=== PATIENT | male | born 1985 | race Caucasian/White ===

== ENCOUNTER 2024-03-14 14:59 | Emergency (ER) | payer BC ==
[2024-03-14] MEDS: HYDROmorphone 1 MG/ML 1 ML SYRINGE IVP STA ×2 (15:12→16:17)
[2024-03-14] MEDS: SODIUM CHLORIDE 0.9% 1,000 ML IV STA (15:12)
--- NOTE | 2024-03-14 15:15 | ED ---
General Adult HPI - General Stated complaint: chainsaw accident Time Seen by Provider: 03/14/24 15:03 Source: patient, EMS Mode of arrival: EMS Limitations: no limitations - History of Present Illness Initial comments: Dictation was produced using [employer] dictation software. please excuse any grammatical, word or spelling errors. Chief Complaint: 38-year-old male with chainsaw injury to the right upper extremity History of Present Illness: Patient is a 38-year-old male approximately 1 hour prior to arrival he had suffered a chainsaw injury to his right thenar eminence. 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 He states that he was cutting a tree when the chainsaw kicked back and hit him in the right hand. Apparently there was some active bleeding and tourniquet was placed by prehospital providers. Patient states that he passed out after the injury. Last oral intake was 12:00. Patient's last tetanus was in 2011. Complains of some numbness and tingling to the distal extremity since the tourniquet was placed. Patient complaining of pain. Denies any significant comorbidities. No complaints of other injuries. The ROS documented in this emergency department record has been reviewed and confirmed by me. Those systems with pertinent positive or negative responses have been documented in the HPI. All other systems are other negative and/or noncontributory. - Related Data Home Medications Medication Instructions Recorded Confirmed DULoxetine HCL [Cymbalta] 30 mg PO DAILY@1200 03/14/24 03/14/24 DULoxetine HCL [Cymbalta] 60 mg PO DAILY@1200 03/14/24 03/14/24 Diclofenac Sodium [Voltaren] 75 mg PO BID 03/14/24 03/14/24 lisinopriL [Prinivil] 20 mg PO DAILY@1200 03/14/24 03/14/24 methocarbamoL [Robaxin-750] 750 mg PO DAILY@1200 03/14/24 03/14/24 traZODone HCL 150 mg PO HS PRN 03/14/24 03/14/24 Previous Rx's Medication Instructions Recorded HYDROcodone/APAP 5-325MG [[place] 1 tab PO Q6HR PRN 3 Days #12 tab 03/14/24 5-325] Sulfamethox-Tmp 800-160Mg [Bactrim 1 tab PO Q12HR 7 Days #14 tab 03/14/24 DS 800-160 mg] Allergies Allergy/AdvReac Type Severity Reaction Status Date / Time No Known Allergies Allergy Verified 03/14/24 16:40 Review of Systems ROS Statement: Those systems with pertinent positive or pertinent negative responses have been documented in the HPI. ROS Other: All systems not noted in ROS Statement are negative. Past Medical History Past Medical History: Hypertension History of Any Multi-Drug Resistant Organisms: None Reported Past Surgical History: No Surgical Hx Reported Past Psychological History: Depression, PTSD Smoking Status: Vaper Past Alcohol Use History: Daily Past Drug Use History: Marijuana General Exam - General Exam Comments Initial Comments: PHYSICAL EXAM: General Impression: Alert and oriented x3, acute distress secondary to pain HEENT: Normocephalic atraumatic, extra-ocular movements intact, pupils equal and reactive to light bilaterally, mucous membranes moist. Cardiovascular: Heart regular rate and rhythm Chest: Able to complete full sentences, no retractions, no tachypnea Abdomen: abdomen soft, non-tender, non-distended, no organomegaly Musculoskeletal: Pulses present and equal in all extremities, no peripheral edema Motor: no focal deficits noted Neurological: CN II-XII grossly intact, no focal motor or sensory deficits noted Skin: Intact with no visualized rashes Psych: Normal affect and mood Right upper extremity: Finger chainsaw injury to the thenar eminence ring approximately 4 cm with exposed muscle tissue. Tourniquet was taken down and no active pulsatile bleeding. Limitations: no limitations Course Vital Signs 03/14/24 15:03 Temperature 97.7 F Pulse Rate 75 Respiratory 20 Rate Blood Pressure 163/113 O2 Sat by Pulse 96 Oximetry - Reevaluation(s) Reevaluation #1: 03/14/24 15:15 patient activated level 2 trauma due to tourniquet application prior to hospital arrival. Case discussed with on-call trauma surgery, Dr. Tillman who is aware of patient's arrival and clinical condition. Reevaluation #2: 03/14/24 16:42 CT angiography was performed. CT radiology read shows no concern for arterial injury. There does appear to be chip fracture of the distal first phalanx. Concern for open fracture. Case was discussed with Dr. Estrella who will come and evaluate the patient and repair injury at the bedside. Reevaluation #3: 03/14/24 18:18 Patient was seen and evaluated by Dr. Estrella at the bedside. He did perform suture repair. Recommends patient be discharged with 1 week course of Bactrim. Patient has follow-up with Ortho. EKG Findings - EKG Comments: EKG Findings:: My EKG interpretation: Ventricular rate 71, sinus rhythm,. 149, QRS 108, QTc 406. No TX prolongation, no QTC prolongation, no ST or T-wave changes noted. Overall, this EKG is unremarkable Medical Decision Making - Medical Decision Making Was pt. sent in by a medical professional or institution (, PA, OPERATION AGENT, urgent care, hospital, or skilled nursing...) When possible be specific @ -No Did you speak to anyone other than the patient for history (EMS, parent, family, police, friend...)? What history was obtained from this source @ -No Did you review nursing and triage notes (agree or disagree)? Why? @ -I reviewed and agree with nursing and triage notes Were old charts reviewed (outside hosp., previous admission, EMS record, old EKG, old radiological studies, urgent care reports/EKG's, skilled nursing records)? Report findings @ -No old charts were reviewed Differential Diagnosis (chest pain, altered mental status, abdominal pain women, abdominal pain men, vaginal bleeding, musculoskeletal, weakness, fever, dyspnea, syncope, headache, dizziness, GI bleed, back pain, seizure, CVA, palpatations, mental health)? @ -Arterial injury, tendon laceration, fracture EKG interpreted by me (3pts min.). @ -None done X-rays interpreted by me (1pt min.). @ -Chest x-ray pelvis x-ray shows no acute processes CT interpreted by me (1pt min.). @ -CT angiography of the upper extremity shows no arterial injury U/S interpreted by me (1pt. min.). @ -None done What testing was considered but not performed or refused? (CT, X-rays, U/S, labs)? Why? @ -None What meds were considered but not given or refused? Why? @ -None Was smoking cessation discussed for >3mins.? @ -No Were there social determinants of health that impacted care today? How? (Homelessness, low income, unemployed, alcoholism, drug addiction, transportation, low edu. Level, literacy, decrease access to med. care, snf, rehab)? @ -No Was there de-escalation of care discussed even if they declined (Discuss DNR or withdrawal of care, Hospice)? DNR status @ -No What co-morbidities impacted this encounter? (DM, HTN, Smoking, COPD, CAD, Cancer, CVA, ARF, Chemo, Hep., AIDS, mental health diagnosis, sleep apnea, morbid obesity)? @ -None Was patient admitted / discharged? Hospital course, mention meds given and route, prescriptions, significant lab abnormalities, going to OR and other pertinent info. @ -38-year-old male presents to the emergency department with chainsaw injury to the right palm. Vital signs upon arrival are within acceptable limits. Patient had tourniquet placed by prehospital providers. Tourniquet was taken down there was no pulsatile bleeding however given proximity to the radial artery CT angiography of the right upper extremity was performed. Patient was seen and evaluated at bedside by Dr. Tillman who agrees that there is no arterial injury. Case was discussed with Dr. Estrella who reviewed the images. He did come down and evaluate the patient performed suture repair. Recommended discharge with 7 days of Bactrim. Did you discuss the management of the patient with other professionals (professionals i.e. , PA, OPERATION AGENT, lab, RT, psych nurse, medical social consultant, chain saw operator, teacher, foreign policy officer, case preparer and liner)? Give summary @ -See above Was critical care preformed (if so, how long)? @ -Yes, 33 minutes for activated level 2 trauma Undiagnosed new problem with uncertain prognosis? @ -No Drug Therapy requiring intensive monitoring for toxicity (Heparin, Nitro, Insulin, Cardizem)? @ -No Were any procedures done? @ -No Diagnosis/symptom? Acute, or Chronic, or Acute on Chronic? Uncomplicated (without systemic symptoms) or Complicated (systemic symptoms)? @ -Chainsaw injury to the right hand Side effects of treatment? @ -No Exacerbation, Progression, or Severe Exacerbation? @ -No Poses a threat to life or bodily function? How? (Chest pain, [place], [place], pneumonia, PE, COPD, DKA, ARF, appy, cholecystitis, CVA, Diverticulitis, Homicidal, Suicidal, threat to staff... and all critical care pts) @ -yes - Lab Data Result diagrams: 03/14/24 15:00 10/17/24 15:00 Lab Results 03/14/24 03/14/24 03/14/24 Range/Units 15:00 15:00 15:00 WBC 11.3 H (3.8-10.6) k/uL RBC 5.35 (4.30-5.90) m/uL Hgb 15.9 (13.0-17.5) gm/dL Hct 50.7 (39.0-53.0) % MCV 94.8 (80.0-100.0) fL MCH 29.7 (25.0-35.0) pg MCHC 31.3 (31.0-37.0) g/dL RDW 12.8 (11.5-15.5) % Plt Count 253 (150-450) k/uL MPV 8.1 Neutrophils % 69 % Lymphocytes % 21 % Monocytes % 6 % Eosinophils % 1 % Basophils % 1 % Neutrophils # 7.8 H (1.3-7.7) k/uL Lymphocytes # 2.4 (1.0-4.8) k/uL Monocytes # 0.6 (0-1.0) k/uL Eosinophils # 0.1 (0-0.7) k/uL Basophils # 0.1 (0-0.2) k/uL PT 10.5 (10.0-12.5) sec INR 1.0 (<1.2) APTT 19.2 L (22.0-30.0) sec Sodium 140 (137-145) mmol/L Potassium 4.4 (3.5-5.1) mmol/L Chloride 106 (98-107) mmol/L Carbon Dioxide 23 (22-30) mmol/L Anion Gap 11 mmol/L BUN 17 (9-20) mg/dL Creatinine 1.08 (0.66-1.25) mg/dL Est GFR (CKD-EPI)AfAm >90 (>60 ml/min/1.73 sqM) Est GFR (CKD-EPI)NonAf 86 (>60 ml/min/1.73 sqM) Glucose 102 H (74-99) mg/dL Lactic Ac Sepsis Rflx Plasma Lactic Acid Coleman (0.7-2.0) mmol/L Calcium 10.7 H (8.4-10.2) mg/dL Total Bilirubin 0.9 (0.2-1.3) mg/dL AST 35 (17-59) U/L ALT 57 H (4-49) U/L Alkaline Phosphatase 74 (38-126) U/L Troponin I (0.000-0.034) ng/mL Total Protein 8.2 (6.3-8.2) g/dL Albumin 5.1 H (3.5-5.0) g/dL Serum Alcohol <10 mg/dL Blood Type Blood Type Confirm Blood Type Recheck Bld Type Recheck Status Antibody Screen Spec Expiration Date 03/14/24 03/14/24 03/14/24 Range/Units 15:00 15:00 15:05 WBC (3.8-10.6) k/uL RBC (4.30-5.90) m/uL Hgb (13.0-17.5) gm/dL Hct (39.0-53.0) % MCV (80.0-100.0) fL MCH (25.0-35.0) pg MCHC (31.0-37.0) g/dL RDW (11.5-15.5) % Plt Count (150-450) k/uL MPV Neutrophils % % Lymphocytes % % Monocytes % % Eosinophils % % Basophils % % Neutrophils # (1.3-7.7) k/uL Lymphocytes # (1.0-4.8) k/uL Monocytes # (0-1.0) k/uL Eosinophils # (0-0.7) k/uL Basophils # (0-0.2) k/uL PT (10.0-12.5) sec INR (<1.2) APTT (22.0-30.0) sec Sodium (137-145) mmol/L Potassium (3.5-5.1) mmol/L Chloride (98-107) mmol/L Carbon Dioxide (22-30) mmol/L Anion Gap mmol/L BUN (9-20) mg/dL Creatinine (0.66-1.25) mg/dL Est GFR (CKD-EPI)AfAm (>60 ml/min/1.73 sqM) Est GFR (CKD-EPI)NonAf (>60 ml/min/1.73 sqM) Glucose (74-99) mg/dL Lactic Ac Sepsis Rflx Plasma Lactic Acid Coleman (0.7-2.0) mmol/L Calcium (8.4-10.2) mg/dL Total Bilirubin (0.2-1.3) mg/dL AST (17-59) U/L ALT (4-49) U/L Alkaline Phosphatase (38-126) U/L Troponin I <0.012 (0.000-0.034) ng/mL Total Protein (6.3-8.2) g/dL Albumin (3.5-5.0) g/dL Serum Alcohol mg/dL Blood Type A Positive Blood Type Confirm A Positive Blood Type Recheck No Previous Record Bld Type Recheck Status CABO Indicated Antibody Screen NEGATIVE Spec Expiration Date 03/17/2024 - 229903/14/24 03/14/24 Range/Units 15:19 16:11 WBC (3.8-10.6) k/uL RBC (4.30-5.90) m/uL Hgb (13.0-17.5) gm/dL Hct (39.0-53.0) % MCV (80.0-100.0) fL MCH (25.0-35.0) pg MCHC (31.0-37.0) g/dL RDW (11.5-15.5) % Plt Count (150-450) k/uL MPV Neutrophils % % Lymphocytes % % Monocytes % % Eosinophils % % Basophils % % Neutrophils # (1.3-7.7) k/uL Lymphocytes # (1.0-4.8) k/uL Monocytes # (0-1.0) k/uL Eosinophils # (0-0.7) k/uL Basophils # (0-0.2) k/uL PT (10.0-12.5) sec INR (<1.2) APTT (22.0-30.0) sec Sodium (137-145) mmol/L Potassium (3.5-5.1) mmol/L Chloride (98-107) mmol/L Carbon Dioxide (22-30) mmol/L Anion Gap mmol/L BUN (9-20) mg/dL Creatinine (0.66-1.25) mg/dL Est GFR (CKD-EPI)AfAm (>60 ml/min/1.73 sqM) Est GFR (CKD-EPI)NonAf (>60 ml/min/1.73 sqM) Glucose (74-99) mg/dL Lactic Ac Sepsis Rflx Y Plasma Lactic Acid Coleman 2.1 H* (0.7-2.0) mmol/L Calcium (8.4-10.2) mg/dL Total Bilirubin (0.2-1.3) mg/dL AST (17-59) U/L ALT (4-49) U/L Alkaline Phosphatase (38-126) U/L Troponin I (0.000-0.034) ng/mL Total Protein (6.3-8.2) g/dL Albumin (3.5-5.0) g/dL Serum Alcohol mg/dL Blood Type Blood Type Confirm Blood Type Recheck Bld Type Recheck Status Antibody Screen Spec Expiration Date Disposition Clinical Impression: Hand laceration Disposition: HOME SELF-CARE Condition: Fair Instructions (If sedation given, give patient instructions): Laceration (ED) Prescriptions: Sulfamethox-Tmp 800-160Mg [Bactrim DS 800-160 mg] 1 tab PO Q12HR 7 Days #14 tab HYDROcodone/APAP 5-325MG [[place] 5-325] 1 tab PO Q6HR PRN 3 Days #12 tab PRN Reason: Severe Pain Is patient prescribed a controlled substance at d/c from ED?: Yes Referrals: Denton Estrella MD [STAFF PHYSICIAN] - 1-2 days Time of Disposition: 18:22
[2024-03-14 15:17] VITALS: TEMP 97.7
[2024-03-14 15:22] LABS: Basophils # (A) 0.1 k/uL (0-0.2); Basophils % (A) 1 %; Eosinophils # (A) 0.1 k/uL (0-0.7); Eosinophils % (A) 1 %; HCT 50.7 % (39.0-53.0); HGB 15.9 gm/dL (13.0-17.5); Lymphocytes # (A) 2.4 k/uL (1.0-4.8); Lymphocytes % (A) 21 %; MCH 29.7 pg (25.0-35.0); MCHC 31.3 g/dL (31.0-37.0); MCV 94.8 fL (80.0-100.0); Mean Platelet Volume 8.1; Monocytes # (A) 0.6 k/uL (0-1.0); Monocytes % (A) 6 %; Neutrophils # (A) 7.8 k/uL (1.3-7.7); Neutrophils % (A) 69 %; Platelet Count 253 k/uL (150-450); RBC 5.35 m/uL (4.30-5.90); RDW 12.8 % (11.5-15.5); WBC 11.3 k/uL (3.8-10.6)
--- NOTE | 2024-03-14 15:29 | XR ---
EXAMINATION TYPE: XR chest 1V portable DATE OF EXAM: 03/14/2024 3:25 PM CLINICAL INDICATION: Male, 38 years old with history of trauma; H COMPARISON: None TECHNIQUE: XR chest 1V portable Frontal view of the chest. FINDINGS: Lungs/Pleura: There is no evidence of pleural effusion, focal consolidation, or pneumothorax. Pulmonary vascularity: Unremarkable. Heart/mediastinum: Cardiomediastinal silhouette is unremarkable. Musculoskeletal: No acute osseous pathology. IMPRESSION: No acute cardiopulmonary disease/process. [facility], , 03/14/2024 3:27 PM
[2024-03-14 15:30] LABS: Prothrombin Time 10.5 sec (10.0-12.5)
[2024-03-14] MEDS: DIPH,PERTUS(ACELL)TETVAC-LF 0.5 ML VIAL IM ONE (15:30)
--- NOTE | 2024-03-14 15:31 | XR ---
EXAMINATION TYPE: XR pelvis AP view DATE OF EXAM: 03/14/2024 3:25 PM CLINICAL INDICATION: Male, 38 years old with history of Trauma; [facility] COMPARISON: 07/23/2010 TECHNIQUE: XR pelvis AP view, examined in a single projection. FINDINGS: There is no evidence of fracture or dislocation. There is no soft tissue abnormality. No a bnormal calcifications are present. The spine appears intact. The hips appear intact. No significant degeneration. IMPRESSION: No acute osseous pathology. [facility], , 03/14/2024 3:28 PM
[2024-03-14 15:42] LABS: ALT 57 U/L (4-49); AST 35 U/L (17-59); African American GFR (CKD) >90 (>60 ml/min/1.73 sqM); Albumin 5.1 g/dL (3.5-5.0); Alcohol <10 mg/dL; Alkaline Phosphatase 74 U/L (38-126); Anion Gap 11 mmol/L; Blood Urea Nitrogen 17 mg/dL (9-20); Calcium 10.7 mg/dL (8.4-10.2); Carbon Dioxide 23 mmol/L (22-30); Chloride 106 mmol/L (98-107); Glucose 102 mg/dL (74-99); Non-African American GFR(CKD) 86 (>60 ml/min/1.73 sqM); Potassium 4.4 mmol/L (3.5-5.1); Sodium 140 mmol/L (137-145); Total Bilirubin 0.9 mg/dL (0.2-1.3); Total Protein 8.2 g/dL (6.3-8.2)
[2024-03-14 16:03] LABS: Partial Thromboplastin Time 19.2 sec (22.0-30.0)
--- NOTE | 2024-03-14 16:14 | P.GSHP ---
History of Present Illness H&P Date: 03/14/24 History of Present Illness: Patient is a 38-year-old male approximately 1 hour prior to arrival he had suffered a chainsaw injury to his right thenar eminence. Level 2 trauma called. 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 He states that he was cutting a tree when the chainsaw kicked back and hit him in the right hand. Apparently there was some active bleeding and tourniquet was placed by EMS. Patient states that he passed out after the injury. Patient's last tetanus was in 2011. Complains of some numbness and tingling to the distal extremity since the tourniquet was placed. Patient complaining of pain. Denies any significant comorbidities. No complaints of other injuries. Right Upper Extremity was evaluated by myself in the ER with the Torniquet taken down and there was no pu lsatile bleeding appreciated. Review of Systems ROS Statement: Those systems with pertinent positive or pertinent negative responses have been documented in the HPI. ROS Other: All systems not noted in ROS Statement are negative. Past Medical History Past Medical History: Hypertension History of Any Multi-Drug Resistant Organisms: None Reported Past Surgical History: No Surgical Hx Reported Past Psychological History: Depression, PTSD Smoking Status: Vaper Past Alcohol Use History: Daily Past Drug Use History: Marijuana General Exam - General Exam Comments Initial Comments: PHYSICAL EXAM: General Impression: Alert and oriented x3, acute distress secondary to pain HEENT: Normocephalic atraumatic, extra-ocular movements intact, pupils equal and reactive to light bilaterally, mucous membranes moist. Cardiovascular: Heart regular rate and rhythm Chest: Able to complete full sentences, no retractions, no tachypnea Abdomen: abdomen soft, non-tender, non-distended, no organomegaly Musculoskeletal: Pulses present and equal in all extremities, no peripheral edema Motor: no focal deficits noted Neurological: CN II-XII grossly intact, no focal motor or sensory deficits noted Skin: Intact with no visualized rashes Psych: Normal affect and mood Right upper extremity: Finger chainsaw injury to the thenar eminence ring approximately 4 cm with exposed muscle tissue. Tourniquet was taken down and no active pulsatile bleeding. 38 year old male Level 2 Trauma with Chainsaw Injury to Right Hand -CTA RUE pending -Labs Pending -Patient will need evaluation by hand surgery for possible tendon injury Simon Tillman DO [facility] [phone] Past Medical History Past Medical History: Hypertension History of Any Multi-Drug Resistant Organisms: None Reported Past Surgical History: No Surgical Hx Reported Past Psychological History: Depression, PTSD Smoking Status: Vaper Past Alcohol Use History: Daily Past Drug Use History: Marijuana Medications and Allergies Allergies Allergy/AdvReac Type Severity Reaction Status Date / Time No Known Allergies Allergy Verified 03/14/24 15:12 Surgical - Exam Vital Signs Temp Pulse Resp BP Pulse Ox 97.7 F 75 20 163/113 96 03/14/24 15:03 03/14/24 15:03 03/14/24 15:03 03/14/24 15:03 03/14/24 15:03 Results - Labs 03/14/24 15:00 03/14/24 15:00 Abnormal Lab Results - Last 24 Hours (Table) 03/14/24 03/14/24 03/14/24 Range/Units 15:00 15:00 15:00 WBC 11.3 H (3.8-10.6) k/uL Neutrophils # 7.8 H (1.3-7.7) k/uL APTT 19.2 L (22.0-30.0) sec Glucose 102 H (74-99) mg/dL Calcium 10.7 H (8.4-10.2) mg/dL ALT 57 H (4-49) U/L Albumin 5.1 H (3.5-5.0) g/dL Diabetes panel 03/14/24 Range/Units 15:00 Sodium 140 (137-145) mmol/L Potassium 4.4 (3.5-5.1) mmol/L Chloride 106 (98-107) mmol/L Carbon Dioxide 23 (22-30) mmol/L BUN 17 (9-20) mg/dL Creatinine 1.08 (0.66-1.25) mg/dL Glucose 102 H (74-99) mg/dL Calcium 10.7 H (8.4-10.2) mg/dL AST 35 (17-59) U/L ALT 57 H (4-49) U/L Alkaline Phosphatase 74 (38-126) U/L Total Protein 8.2 (6.3-8.2) g/dL Albumin 5.1 H (3.5-5.0) g/dL Calcium panel 03/14/24 Range/Units 15:00 Calcium 10.7 H (8.4-10.2) mg/dL Albumin 5.1 H (3.5-5.0) g/dL Pituitary panel 03/14/24 Range/Units 15:00 Sodium 140 (137-145) mmol/L Potassium 4.4 (3.5-5.1) mmol/L Chloride 106 (98-107) mmol/L Carbon Dioxide 23 (22-30) mmol/L BUN 17 (9-20) mg/dL Creatinine 1.08 (0.66-1.25) mg/dL Glucose 102 H (74-99) mg/dL Calcium 10.7 H (8.4-10.2) mg/dL Adrenal panel 03/14/24 Range/Units 15:00 Sodium 140 (137-145) mmol/L Potassium 4.4 (3.5-5.1) mmol/L Chloride 106 (98-107) mmol/L Carbon Dioxide 23 (22-30) mmol/L BUN 17 (9-20) mg/dL Creatinine 1.08 (0.66-1.25) mg/dL Glucose 102 H (74-99) mg/dL Calcium 10.7 H (8.4-10.2) mg/dL Total Bilirubin 0.9 (0.2-1.3) mg/dL AST 35 (17-59) U/L ALT 57 H (4-49) U/L Alkaline Phosphatase 74 (38-126) U/L Total Protein 8.2 (6.3-8.2) g/dL Albumin 5.1 H (3.5-5.0) g/dL
--- NOTE | 2024-03-14 16:18 | CT ---
EXAMINATION TYPE: CT angio upper extremity RT DATE OF EXAM: 03/14/2024 COMPARISON: None HISTORY: chainsaw to the hand. pt unable to bring arms up due to poor shoulders and pain CT DLP: 1427.7 mGycm Automated exposure control for dose reduction was used. Contrast: None Technique: Axial images right upper extremity at 2 mm thick sections. FINDINGS: Soft tissue injury is at the anterior right wrist. This may be deeper along the radial aspect of the right hand. Lateral flexor tendons appear intact. The more medial tendons are poorly visualized. Joint spaces are preserved. Small osseous injury to the base of the thumb phalanx may be present. Example image series 403 image 36, series 402 image 7. Study is performed with intravenous contrast. The brachial artery and the radial and ulnar arteries a t their origins are identified. The distal arterial vessels are poorly visualized. A small portion of the radial artery appears to be visualized at the distal radius. This appears to be just deep to the soft tissue injury. Some lucency identified on the coronal plane images within the distal diaphyseal radius and ulna appe ar to be artifact, possibly motion artifact and not evident on the additional images. Remaining portions of the chest within the field of view appear normal. No suspicious infiltrates. No pneumothorax. Aorta and pulmonary vasculature is normal. Portions of the upper abdomen within the field of view appear unremarkable. No suspicious intra-abdom inal process. No organ lacerations evident. No superficial gastric or abdomen lacerations identified. IMPRESSION: 1. SMALL CHIP LIKE FRACTURE AT THE BASE OF THE PROXIMAL PHALANX OF RIGHT THUMB. 2. SOFT TISSUE INJURY ANTERIOR RIGHT WRIST. THIS APPEARS TO BE DEEPER ALONG THE RADIAL PORTION. A SMA LL PORTION OF THE RADIAL ARTERY APPEARS TO BE VISUALIZED AT THE LEVEL OF THE DISTAL RADIUS. [facility], Workstation: [id number], 03/14/2024 4:15 PM
[2024-03-14] MEDS: LIDOCAINE 1% INJ 10MG/ML (20 ML MDV) SQ ONE ×2 (17:08→17:50)
[2024-03-14] MEDS: MIDAZOLAM 2 MG/2 ML VIAL IV ONE (17:40)
[2024-03-14] MEDS: ACET/COD 300 MG/30 MG STARTER PACK 6 TAB BTL PO STA (18:47)
[2024-03-14] MEDS: SULFAMETH-TMP DS STARTER PACK 2 TAB BTL PO STA (18:47)
--- NOTE | 2024-03-14 18:52 | XR ---
EXAMINATION TYPE: XR finger RT, XR hand complete RT DATE OF EXAM: 03/14/2024 6:38 PM CLINICAL INDICATION: Male, 38 years old with history of chainsaw injury, thumb fracture; [facility] COMPARISON: None TECHNIQUE: XR finger RT, XR hand complete RT Frontal, lateral and oblique views were obtained. FINDINGS/IMPRESSION: Bandage limits evaluation. Osseous fragment near the first digit metatarsophalangeal joint could repr esent an sesamoid. Consider repeat exam with out bandage fixation plates no obvious radiopaque foreig n body. . [facility], , 03/14/2024 6:49 PM
--- NOTE | 2024-03-14 18:54 | P.CNOR ---
History of Present Illness - HPI Consult date: 03/14/24 Consult reason: other (right hand laceration ) History of present illness: Patient presents as a level 2 trauma evaluation after a chainsaw injury to his right hand. A tourniquet was placed in the field to control bleeding on arrival in the ED after he was evaluated by the ED and trauma physicians the tourniquet was let down and no pulsatile bleeding was identified on my exam there is an approximately 4 cm laceration involving the thenar eminence of the palm there is also a 2 cm laceration in the distal third forearm that is superficial adjacent to the previously mentioned palmar laceration there is a more superficial laceration also approximately 2 cm the patient denies any numbness or tingling to the hand he has moderate pain at this time that is worsened with movement or direct contact to the wound in the ED he was provided with updated tetanus as well as antibiotics Review of Systems Constitutional: Reports as per HPI Musculoskeletal: Reports as per HPI Integumentary: Reports as per HPI Past Medical History Past Medical History: Hypertension History of Any Multi-Drug Resistant Organisms: None Reported Past Surgical History: No Surgical Hx Reported Past Psychological History: Depression, PTSD Smoking Status: Vaper Past Alcohol Use History: Daily Past Drug Use History: Marijuana Medications and Allergies Home Medications Medication Instructions Recorded Confirmed Type DULoxetine HCL [Cymbalta] 30 mg PO DAILY@1200 03/14/24 03/14/24 History DULoxetine HCL [Cymbalta] 60 mg PO DAILY@1200 03/14/24 03/14/24 History Diclofenac Sodium [Voltaren] 75 mg PO BID 03/14/24 03/14/24 History HYDROcodone/APAP 5-325MG [[place] 1 tab PO Q6HR PRN 3 Days #12 tab 03/14/24 Rx 5-325] Sulfamethox-Tmp 800-160Mg [Bactrim 1 tab PO Q12HR 7 Days #14 tab 03/14/24 Rx DS 800-160 mg] lisinopriL [Prinivil] 20 mg PO DAILY@1200 03/14/24 03/14/24 History methocarbamoL [Robaxin-750] 750 mg PO DAILY@1200 03/14/24 03/14/24 History traZODone HCL 150 mg PO HS PRN 03/14/24 03/14/24 History Allergies Allergy/AdvReac Type Severity Reaction Status Date / Time No Known Allergies Allergy Verified 03/14/24 16:40 Physical Examination - Wrist & Hand right Location of pain: volar hand Thumb pain modifiers: with motion Appearance: laceration (4cm laceration noted to the thenar eminence involving t he thenar musculature) Tenderness with palpation: volar hand, thumb Full ROM: fingers: yes ROM: thumb MP joint: normal ROM: thumb IP joint: normal Tests: median nerve tests: positive (Sensation intact throughout the hand), ulnar nerve tests: positive (Sensation intact throughout the hand), radial nerve tests: positive (Sensation intact throughout the hand), radial artery flow tests: positive (Palpable radial artery ) Results - Labs Labs: Abnormal Lab Results - Last 24 Hours (Table) 03/14/24 03/14/24 03/14/24 Range/Units 15:00 15:00 15:00 WBC 11.3 H (3.8-10.6) k/uL Neutrophils # 7.8 H (1.3-7.7) k/uL APTT 19.2 L (22.0-30.0) sec Glucose 102 H (74-99) mg/dL Plasma Lactic Acid Coleman (0.7-2.0) mmol/L Calcium 10.7 H (8.4-10.2) mg/dL ALT 57 H (4-49) U/L Albumin 5.1 H (3.5-5.0) g/dL 03/14/24 Range/Units 15:19 WBC (3.8-10.6) k/uL Neutrophils # (1.3-7.7) k/uL APTT (22.0-30.0) sec Glucose (74-99) mg/dL Plasma Lactic Acid Coleman 2.1 H* (0.7-2.0) mmol/L Calcium (8.4-10.2) mg/dL ALT (4-49) U/L Albumin (3.5-5.0) g/dL H & H 03/14/24 Range/Units 15:00 Hgb 15.9 (13.0-17.5) gm/dL Hct 50.7 (39.0-53.0) % Coagulation 03/14/24 Range/Units 15:00 INR 1.0 (<1.2) Result Diagrams: 03/14/24 15:00 03/14/24 15:00 - Diagnostic results Wrist/Hand x-ray: pending Wrist/Hand CT: report reviewed (Imaging demonstrated a volar wound to the distal forearm and volar hand the image showed that there was patency of the radial artery they also noted a small fracture to the base of the proximal phalanx of the thumb this will be further identified on dedicated hand x-rays), image reviewed Assessment and Plan Assessment: Right hand thenar eminence laceration secondary to chainsaw injury without involvement of flexor tendons, or neurovascular structures Open fracture of the proximal phalanx of the thumb (1) Hand laceration Current Visit: Yes Status: Acute Priority: High Code(s): S61.419A - LACERATION WITHOUT FOREIGN BODY OF UNSP HAND, INIT ENCNTR SNOMED Code(s): 077217752 Plan: After examination and determining that the critical structures of the thumb were intact the patient was provided with local anesthetic using 1% lidocaine without epinephrine the wounds were copiously irrigated with normal saline and the wounds were closed using 4-0 Monocryl suture sterile dressings were applied as well as a thumb spica splint Patient will follow-up in my office in 1 week for a wound evaluation Discussed with the patient and his that the full extent of the soft tissue injury may not be evident until his follow-up visit and counseled that the wound area may increase in size due to the traumatic nature of his injury however the tissues will likely heal on their own getting with the deep structures and progressing superficially Patient had his tetanus updated in the ED he will be provided with oral Bactrim for 1 week to take at home Encouraged ice and elevation to control swelling [id number] pain medications as needed for pain relief Time with Patient: Greater than 30
[2024-03-14 19:21] VITALS: BP 144/98; PULSE 89; RESP 18
== END 2024-03-14 18:52 | disposition home or self-care (01) ==
LOC: EC 14:59
CPT/HCPCS: 12002; 36415; 71045; 72170; 80053; 80320; 83605; 84484; 85025; 85610; 85730; 86850; 86900; 86901; 90471; 90715; 93005; 96361; 96365; 96375; 96376; 99291